=== PATIENT | male | born 1975 | race African-American/Black ===

== ENCOUNTER 2018-05-05 01:53 | Emergency (ER) | payer SELFPAY ==
[~2018-05-05] VITALS: Ht 188 cm; Wt 158.3 kg
[2018-05-05 02:11] VITALS: BP 135/82
[2018-05-05] MEDS ORDERED: IBUPROFEN600 M1 PO (02:56)
[2018-05-05] MEDS ORDERED: BACLOFEN10 M1 PO (02:56)
[2018-05-05] MEDS ORDERED: ULTRAM50 M1 PO (02:56)
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
== END 2018-05-05 03:01 ==
LOC: ERH 01:53
DX: M51.16 Intervertebral disc disorders with radiculopathy, lumbar region (principal)